=== PATIENT | male | born 2000 | race Caucasian/White ===

== ENCOUNTER 2023-12-14 09:31 | Emergency (ER) | payer MEDICAID, OTHER ==
[~2023-12-14] VITALS: Ht 185.4 cm; Wt 91.0 kg
[~2023-12-14 09:31] MED LIST: CLON0.1T; GUAN1TAB8
[2023-12-14 10:08] LABS: Urine Bacteria None Seen /hpf (None Seen)
[2023-12-14 10:15] LABS: Basophils # (auto) 0 10 ^3/uL (0-0.2); Basophils % (auto) 0.3 % (0.0-2.0); Eosinophils # (auto) 0.1 10 ^3/uL (0-0.8); Eosinophils % (auto) 0.7 % (0.0-7.0); Hematocrit 43.4 % (41.0-53.0); Hemoglobin 14.9 g/dL (13.5-17.5); Lymphocytes # (auto) 0.6 10 ^3/uL (0.4-5.4); Lymphocytes % (auto) 7.9 % (10.0-50.0); Mean Corpuscular Hemoglobin 30.9 pg (28.0-32.0); Mean Corpuscular Hgb Conc. 34.4 g/dL (32.0-36.0); Mean Corpuscular Volume 89.9 fL (80.0-100.0); Monocytes # (auto) 0.6 10 ^3/uL (0-1.3); Monocytes % (auto) 7.6 % (0.0-12.0); Neutrophils # (auto) 6.6 10 ^3/uL (1.6-8.6); Neutrophils % (auto) 83.5 % (37.0-80.0); Nucleated Red Blood Cells % 0.1 %; Red Blood Cells 4.83 10^6/uL (4.5-5.90); Red Cell Distribution Width 12.8 % (11.8-14.3); White Blood Cell 7.9 10^3/uL (4.4-10.8)
[2023-12-14 10:32] LABS: Urine Blood Normal /uL (Negative); Urine Clarity CLEAR (Clear); Urine Color Colorless (Yellow); Urine Protein, UAD Normal (Negative); Urine Specific Gravity 1.005 (1.001-1.035); Urine Urobilinogen Normal (Negative); Urine WBC <1/HPF /hpf (0 - 3)
[2023-12-14 10:32] LABS: Alanine Aminotransferase 28 U/L (7-40); Alkaline Phosphatase 89 U/L (46-116); Anion Gap 7 (5-15); Aspartate Aminotransferase 26 U/L (13-40); BUN/Creatinine Ratio 7.4 (10.0-20.0); Blood Urea Nitrogen 7 mg/dL (9-23); Calcium 10.1 mg/dL (8.7-10.4); Carbon Dioxide 26 mmol/L (20-30); Chloride 106 mmol/L (98-107); Glucose 100 mg/dL (74-106); Potassium 3.8 mmol/L (3.5-5.1); Sodium 139 mmol/L (136-145)
[2023-12-14 10:33] LABS: Albumin 5.3 g/dL (3.2-4.8); Bilirubin, Total 0.7 mg/dL (0.2-1.0); Total Protein 7.7 g/dL (5.7-8.2)
[2023-12-14] MEDS ORDERED: PANT40TA2 PO (12:38)
[2023-12-14 13:06] VITALS: BP 133/69; PULSE 81; RESP 17; TEMP 98.6; O2SAT 97
[2023-12-14] MEDS: LIDOCAINE VISCOUS 2% 15ML UD PO ONE (13:09)
[2023-12-14] MEDS: MAALOX PLUS or MAALOX 30 ML PO ONE (13:09)
[2023-12-14] MEDS: DONNATAL 5ml ORAL Elix (BELLADONNA ALK-PHENOBARB) PO ONE (13:09)
== END 2023-12-14 13:52 | disposition home or self-care (01) ==
LOC: ER 09:35
DX: K29.70 Gastritis, unspecified, without bleeding (principal); R31.9 Hematuria, unspecified; R42 Dizziness and giddiness
CPT/HCPCS: 36415; 80053; 81001; 85025